=== PATIENT | female | born 1975 | race Caucasian/White ===

== ENCOUNTER 2019-01-21 18:26 | Emergency (ER) | payer OTHER ==
--- NOTE | 2019-01-21 18:55 | PDOC ---
Rapid Medical Evaluation Chief Complaint: Abscess Boil Time Seen by Provider: 01/21/19 18:52 Medical Evaluation: 01/21/19 18:53 I have performed a brief in-person evaluation of this patient. The patient presents with a chief complaint of: right axilla swelling and pain x 2 days. No HX of same Pertinent physical exam findings: swelling to right axilla I have ordered the following: nothing The patient will proceed to the ED for further evaluation. Discharge Disposition - Diagnosis Abscess - Referrals - Patient Instructions - Post Discharge Activity
[2019-01-21 18:56] VITALS: BP 134/90; PULSE 83; TEMP 98.4; BMI 26.6
--- NOTE | 2019-01-21 20:12 | PDOC ---
History of Present Illness - General Chief Complaint: Abscess Boil Stated Complaint: LUMP UNDER RT ARM Time Seen by Provider: 01/21/19 18:52 History Source: Patient Exam Limitations: No Limitations - History of Present Illness Initial Comments: 01/21/19 20:07 c/o painless mass to underside of right upper arm. No swelling/ reness/ pain. Had skin excision ~ 1 year ago for excess tissue removal . Timing/Duration: unsure (2 days) Severity: mild Associated Symptoms: reports: denies symptoms Past History - Travel Traveled outside of the country in the last 30 days: No Close contact w/someone who was outside of country & ill: No - Past Medical History Allergies/Adverse Reactions: Allergies Allergy/AdvReac Type Severity Reaction Status Date / Time No Known Allergies Allergy Verified 01/21/19 18:56 Home Medications: Ambulatory Orders Cephalexin Monohydrate [Keflex -] 500 mg PO Q8H #21 capsule 01/21/19 - Suicide/Smoking/Psychosocial Hx Smoking History: Never smoked Have you smoked in the past 12 months: No Information on smoking cessation initiated: No Hx Alcohol Use: No Drug/Substance Use Hx: No Review of Systems - Review of Systems Able to Perform ROS?: Yes Is the patient limited Mauritanian proficient: Yes Constitutional: Yes: Symptoms Reported, See HPI. No: Malaise HEENTM: Yes: See HPI. No: Symptoms Reported Integumentary: Yes: Symptoms Reported, See HPI, Lesions, Lumps. No: Bruising, Erythema Neurological: Yes: See HPI. No: Symptoms reported All Other Systems: Reviewed and Negative *Physical Exam - Vital Signs Last Vital Signs Temp Pulse Resp BP Pulse Ox 98.4 F 83 18 134/90 98 01/21/19 18:53 01/21/19 18:53 01/21/19 18:53 01/21/19 18:53 01/21/19 18:53 - Physical Exam General Appearance: Yes: Nourished, Appropriately Dressed. No: Apparent Distress HEENT: positive: COREY, Normal ENT Inspection, TMs Normal, Pharynx Normal Neck: positive: Supple. negative: Tender, Lymphadenopathy (R), Lymphadenopathy (L) Respiratory/Chest: positive: Lungs Clear, Normal Breath Sounds Extremity: positive: Normal Capillary Refill, Normal Range of Motion Integumentary: positive: Normal Color, Other (ell-healed scaron the underside ofright midpoint deltoidarea. Has a soft nontender mobile mass superior to that same site of scar tissue. No crepitus or step-offs, no fluctuance, no discolorationto the skin superficial to this mass. Patient has full range of motion to arm, no pain with supination and pronation, flexion and extension at elbow. No shoulder pain. 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 Will recommend rest, no manipulation of the area, and follow-up with plastic surgeryFriday or Friday if mass continues or worsens *DC/Admit/Observation/Transfer Diagnosis at time of Disposition: Mass of arm Qualifiers: Laterality: right Qualified Code(s): R22.31 - Localized swelling, mass and lump , right upper limb - Discharge Dispostion Disposition: HOME Condition at time of disposition: Stable Decision to Admit order: No - Prescriptions Prescriptions: Cephalexin Monohydrate [Keflex -] 500 mg PO Q8H #21 capsule - Referrals - Patient Instructions Additional Instructions: Rest arm, avoid manipulation of area for 1 week. May use hot soaks to see if anything resolves. Will give Keflex 500mg 3 times a day for 1 week to treat for possible abscess. Followup with Plastics as scheduled - Post Discharge Activity Forms/Work/School Notes: Back to Work
== END 2019-01-21 20:17 | disposition home or self-care (01) ==
LOC: JERFT 18:26
DX: L02.411 Cutaneous abscess of right axilla (principal)
CPT/HCPCS: 99281-25

== ENCOUNTER 2019-03-24 13:14 | Emergency (ER) | payer SELFPAY ==
--- NOTE | 2019-03-24 13:23 | PDOC ---
Rapid Medical Evaluation Chief Complaint: Eye Problem Time Seen by Provider: 03/24/19 13:21 Medical Evaluation: Allergies Allergy/AdvReac Type Severity Reaction Status Date / Time No Known Allergies Allergy Verified 01/21/19 18:56 03/24/19 13:22 I have performed a brief in-person evaluation of this patient. The patient presents with a chief complaint of: redness in right eye after accidentally hitting herself in right eye 4 days ago Pertinent physical exam findings: moderately injected right conjunctiva with bright red patch on right conjunctiva I have ordered the following: nothing The patient will proceed to the ED for further evaluation. Discharge Disposition - Diagnosis Subconjunctival hemorrhage of right eye - Discharge Dispostion Condition at time of disposition: Stable - Referrals - Patient Instructions - Post Discharge Activity
[2019-03-24 13:29] VITALS: BP 139/97; PULSE 92; TEMP 97.7; BMI 28.1
--- NOTE | 2019-03-24 15:17 | PDOC ---
History of Present Illness - General Chief Complaint: Eye Problem Stated Complaint: REDNESS IN RT. EYE Time Seen by Provider: 03/24/19 13:21 History Source: Patient - History of Present Illness Timing/Duration: other Past History - Past Medical History Allergies/Adverse Reactions: Allergies Allergy/AdvReac Type Severity Reaction Status Date / Time No Known Allergies Allergy Verified 03/24/19 13:23 Home Medications: Ambulatory Orders Cephalexin Monohydrate [Keflex -] 500 mg PO Q8H #21 capsule 01/21/19 COPD: No - Suicide/Smoking/Psychosocial Hx Smoking History: Never smoked Have you smoked in the past 12 months: No Information on smoking cessation initiated: No Hx Alcohol Use: No Drug/Substance Use Hx: No Review of Systems - Review of Systems HEENTM: No: Eye Pain, Blurred Vision *Physical Exam - Vital Signs Last Vital Signs Temp Pulse Resp BP Pulse Ox 97.7 F 92 H 19 139/97 100 03/24/19 13:21 03/24/19 13:21 03/24/19 13:21 03/24/19 13:21 03/24/19 13:21 - Physical Exam General Appearance: Yes: Appropriately Dressed. No: Apparent Distress HEENT: positive: Normal Voice, Other (flat, sharply demarcated, erythematous area to lateral canthus of R eye, c/w subconj) Neck: positive: Supple Respiratory/Chest: negative: Respiratory Distress Integumentary: positive: Dry, Warm Neurologic: positive: Fully Oriented, Alert, Normal Mood/Affect Medical Decision Making - Medical Decision Making 03/24/19 15:04 43 yo F, no sig hx, here w/ R conjunctival erythema after accidentally hitting herself in the eye while in a pool 4 days ago. Denies any eye pain, blurry vision, tearing discharge. Here for clearance back to work See exam Subconj hemorrhage 2/2 trauma -dc w/ reassurance *DC/Admit/Observation/Transfer Diagnosis at time of Disposition: Subconjunctival hemorrhage of right eye - Discharge Dispostion Disposition: HOME Condition at time of disposition: Stable - Referrals - Patient Instructions Printed Discharge Instructions: DI for Subconjunctival Hemorrhage Additional Instructions: You have a condition called subconjunctival hemorrhage which is bleeding small blood vessels to the eye. This condition will resolve in 2-3 weeks. This condition is not contagious. You can return to work [employer] with - Post Discharge Activity Forms/Work/School Notes: Back to Work
== END 2019-03-24 15:15 | disposition home or self-care (01) ==
LOC: JERFT 13:14
DX: H11.31 Conjunctival hemorrhage, right eye (principal)
CPT/HCPCS: 99281-25

== ENCOUNTER 2019-08-30 16:54 | Emergency (ER) | payer OTHER ==
[2019-08-30 17:14] VITALS: BP 130/91; PULSE 80; TEMP 98.6; BMI 26.6
--- NOTE | 2019-08-30 17:23 | PDOC ---
Rapid Medical Evaluation Time Seen by Provider: 08/30/19 17:11 Medical Evaluation: Allergies Allergy/AdvReac Type Severity Reaction Status Date / Time No Known Allergies Allergy Verified 03/24/19 13:23 08/30/19 17:12 Pt c/o: left knee pain x 2 weeks, no injury, no hx of ortho issues Pt on brief exam: ambulatory, from noted, vss pt ordered for: none Pt to proceed to the ED Discharge Disposition - Diagnosis Knee pain Qualifiers: Chronicity: acute Laterality: right Qualified Code(s): M25.561 - Pain in right knee - Discharge Dispostion Disposition: HOME Condition at time of disposition: Stable - Prescriptions Prescriptions: Meloxicam [Mobic] 15 mg PO DAILY #7 tablet - Referrals Referrals: Kenny De Leon DO [Staff Physician] - - Patient Instructions Printed Discharge Instructions: DI for Knee Sprain Additional Instructions: The x-ray of right knee shows no abnormality. Your symptoms likely knee sprain. Take prescribed medication as prescribed for pain. Follow-up referred to orthopedics if no improvement in 4 days for possible MRI - Post Discharge Activity
--- NOTE | 2019-08-30 18:32 | PDOC ---
History of Present Illness - General Chief Complaint: Pain, Acute Stated Complaint: LT KNEE PAIN Time Seen by Provider: 08/30/19 17:11 History Source: Patient Exam Limitations: Clinical Condition - History of Present Illness Initial Comments: 08/30/19 18:27 Patient with no significant past medical history presented with complaint of 2 weeks history of persisting knee pain which has been progressing with cracking sensation in left knee having intermittent posterior knee pain and lateral knee pain. Patient reported pain now to lateral aspect of right knee. Denies numbness or tingling sensation. Patient reported increased pain when she straighten right knee. Patient reported fall a month ago but had no pain following fall. Denies any other symptoms. Patient has not taken anything for pain Is this a multiple visit Asthma Patient?: No Timing/Duration: other (2 weeks) Past History - Past Medical History Allergies/Adverse Reactions: Allergies Allergy/AdvReac Type Severity Reaction Status Date / Time No Known Allergies Allergy Verified 03/24/19 13:23 Home Medications: Ambulatory Orders Cephalexin Monohydrate [Keflex -] 500 mg PO Q8H #21 capsule 01/21/19 Meloxicam [Mobic] 15 mg PO DAILY #7 tablet 08/30/19 COPD: No - Immunization History Immunization Up to Date: No - Psycho Social/Smoking Cessation Hx Smoking History: Never smoked Have you smoked in the past 12 months: No Information on smoking cessation initiated: No Hx Alcohol Use: No Drug/Substance Use Hx: No Review of Systems - Review of Systems Able to Perform ROS?: Yes Is the patient limited Cuban proficient: No Constitutional: No: Chills, Fever, Malaise HEENTM: No: Symptoms Reported Respiratory: No: Symptoms reported Cardiac (ROS): No: Symptoms Reported ABD/GI: No: Symptoms Reported Musculoskeletal: Yes: Symptoms Reported, See HPI, Joint Pain (right knee), Muscle Pain (lateral aspect of right knee). No: Joint Swelling, Joint Stiffness Neurological: No: Symptoms reported, Numbness, Paresthesia, Tingling All Other Systems: Reviewed and Negative *Physical Exam - Vital Signs Last Vital Signs Temp Pulse Resp BP Pulse Ox 98.6 F 80 18 130/91 100 08/30/19 17:12 08/30/19 17:12 08/30/19 17:12 08/30/19 17:12 08/30/19 17:12 - Physical Exam 08/30/19 18:31 GENERAL: Well developed, well nourished. Awake and alert. No acute distress. PULMONARY: No evidence of respiratory distress. MUSCULOSKELETAL : mild tenderness over lateral collateral ligament of right knee. No tenderness to medial collateral ligament or popliteal fossa. Negative anterior posterior drawer test of right knee. Patient ambulating with normal gait SKIN: Warm and dry. Normal capillary refill. No rashes. No bruising, swelling or ecchymosis to right knee. NEUROLOGICAL: Alert, awake, appropriate. No motor deficits in the lower extremities. Gait is normal without ataxia. PSYCHIATRIC: Cooperative. Good eye contact. Appropriate mood and affect. General Appearance: Yes: Nourished, Appropriately Dressed. No: Apparent Distress ED Treatment Course - RADIOLOGY Radiology Studies Ordered: Category Date Time Status KNEE 3 POS-LEFT [RAD] Stat Radiology 08/30/19 18:13 Ordered Medical Decision Making - Medical Decision Making 08/30/19 18:29 Patient with no significant past medical history presented with complaint of 2 weeks history of persisting knee pain which has been progressing with cracking sensation in left knee having intermittent posterior knee pain and lateral knee pain. Patient reported pain now to lateral aspect of right knee. Denies numbness or tingling sensation. Patient reported increased pain when she straighten right knee. Patient reported fall a month ago but had no pain following fall. Denies any other symptoms. Patient has not taken anything for pain Exam significant for mild tenderness over lateral collateral ligaments of right knee. No tenderness over popliteal fossa of medial collateral ligament. Negative anterior posterior drawer test of right knee. Patient symptoms likely knee strain. X-ray of right knee ordered to rule acute abnormality. Treat based on x-ray results 08/30/19 18:46 Right knee x-rays unremarkable and shows no acute abnormality. Patient symptoms likely knee sprain and stable for discharge on meloxicam 15 mg daily with orthopedics follow-up Discharge - Discharge Information Problems reviewed: Yes Clinical Impression/Diagnosis: Knee pain Qualifiers: Chronicity: acute Laterality: right Qualified Code(s): M25.561 - Pain in right knee Condition: Stable Disposition: HOME - Admission No - Additional Discharge Information Prescriptions: Meloxicam [Mobic] 15 mg PO DAILY #7 tablet - Follow up/Referral Referrals: Kenny De Leon DO [Staff Physician] - - Patient Discharge Instructions Patient Printed Discharge Instructions: DI for Knee Sprain Additional Instructions: The x-ray of right knee shows no abnormality. Your symptoms likely knee sprain. Take prescribed medication as prescribed for pain. Follow-up referred to orthopedics if no improvement in 4 days for possible MRI - Post Discharge Activity
[2019-08-30] MEDS ORDERED: NAPROXEN 500 MG TABLET PO ONE (18:48)
[2019-08-30] MEDS ORDERED: NAPROXEN 500 MG TABLET ONE (18:51)
== END 2019-08-30 18:52 | disposition home or self-care (01) ==
LOC: JERFT 16:54
DX: M25.561 Pain in right knee (principal); Z91.81 History of falling
CPT/HCPCS: 73562-TC-LT-FY; 99281-25

== ENCOUNTER 2021-01-04 01:30 | Emergency (ER) | payer OTHER ==
[2021-01-04 01:49] VITALS: BMI 28.0
[2021-01-04 03:09] LABS: BASO % 0.8 % (0-2.0); EOS % 1.3 % (0-4.5); HEMATOCRIT 29.8 % (32.4-45.2); HEMOGLOBIN 9.7 GM/dL (10.7-15.3); LYMPH % 12.8 % (8-40); MCH 25.5 pg (25.7-33.7); MCHC 32.5 g/dl (32.0-36.0); MEAN CELL VOLUME 78.5 fl (80-96); MONO % 8.9 % (3.8-10.2); NEUT % 76.2 % (42.8-82.8); PLATELET COUNT 287 K/MM3 (134-434); RDW 20.5 % (11.6-15.6); WHITE BLOOD COUNT 11.8 K/mm3 (4.0-10.0)
[2021-01-04 03:15] LABS: HCG,QUALITATIVE URINE Negative
[2021-01-04 03:17] LABS: INR 1.04 (0.83-1.09); PROTHROMBIN TIME (PATIENT) 12.6 SEC (9.7-13.0)
[2021-01-04 03:24] LABS: EPI CELLS 25 /uL (0-25.1); HYALINE CASTS 4 /uL (0-3.1); PH,URINE 5.5 (5.0-8.0); URINE APPEARANCE CLEAR; URINE BACTERIA 618 /uL (0-1359); URINE BILIRUBIN NEGATIVE (NEGATIVE); URINE COLOR YELLOW; URINE GLUCOSE (UA) NEGATIVE (NEGATIVE); URINE KETONE NEGATIVE (NEGATIVE); URINE LEUK ESTERASE TRACE (NEGATIVE); URINE NITRITE NEGATIVE (NEGATIVE); URINE PROTEIN NEGATIVE (NEGATIVE); URINE RBC 15 /uL (0-23.9); URINE UROBILINOGEN 0.2 mg/dL (0.2-1.0); URINE WBC 24 /uL (0-25.8)
[2021-01-04 03:29] LABS: CHLORIDE 105 mmol/L (98-107); SODIUM 139 mmol/L (136-145)
[2021-01-04 03:31] LABS: CALCIUM 8.7 mg/dL (8.5-10.1)
[2021-01-04 03:32] LABS: ALBUMIN 3.4 g/dl (3.4-5.0); ANION GAP 5 MMOL/L (8-16); BLOOD UREA NITROGEN 9.8 mg/dL (7-18); CO2 29 mmol/L (21-32); GLUCOSE,RANDOM 83 mg/dL (74-106)
[2021-01-04 03:35] LABS: CREATININE 0.5 mg/dL (0.55-1.3); SGOT/AST 23 U/L (15-37); SGPT/ALT 16 U/L (13-61)
[2021-01-04 03:37] LABS: BILIRUBIN,TOTAL 0.3 mg/dL (0.2-1); TOT PROT 7.1 g/dl (6.4-8.2)
[2021-01-04 03:38] LABS: ALK PHOS 78 U/L (45-117)
[2021-01-04] MEDS ORDERED: ACETAMINOPHEN 325 MG TABLET (FP) PO ONE (04:41)
[2021-01-04] MEDS ORDERED: ACETAMINOPHEN 325 MG TABLET (FP) ONE (04:54)
[2021-01-04 05:29] LABS: ANISOCYTOSIS 1+; MACROCYTOSIS 1+; OVALOCYTE 1+; PLATELET ESTIMATE NORMAL
[2021-01-04 05:57] VITALS: BP 110/67; PULSE 78; TEMP 98.1
== END 2021-01-04 05:55 | disposition home or self-care (01) ==
LOC: JER 01:30
DX: J18.9 Pneumonia, unspecified organism (principal)
CPT/HCPCS: 36415; 71045-TC-FY; 71275-TC; 74176-TC; 80053; 81003; 82550; 82553; 84484; 84703; 85025; 85379; 85610; 87086; 93005; 93010; 99284-25